=== PATIENT | female | born 1995 | race Caucasian/White ===

== ENCOUNTER 2017-05-21 11:02 | Emergency (ER) | payer BC, MEDICAID ==
[~2017-05-21] VITALS: Ht 162.6 cm; Wt 51.7 kg
[~2017-05-21 11:02] MED LIST: GILD1TAB PO
[2017-05-21 11:12] VITALS: BP 160/98; PULSE 74; RESP 16; TEMP 98.7; O2SAT 100
[2017-05-21] MEDS ORDERED: SODIUM CHLOR 0.9% 1000 ML INJ 1,000 ML IV ONE (11:26)
--- NOTE | 2017-05-21 11:31 | PD ---
HPI Chief Complaint: Flank/Kidney Pain Time Seen by Provider: 11:17 Travel History International Travel<30 days: No Contact w/Intl Traveler<30days: No Traveled to known affect area: No History of Present Illness HPI The patient is a 21-year-old female who presents to the emergency department for abdominal pain and spotting. The patient states her last menstrual cycle was April 05, 2017. Patient is who estimates herself to be 5-6 weeks . The patient states she was at work earlier today when she developed light vaginal spotting that she noticed on her underwear as well as mild right lower quadrant abdominal pain. The patient does note increased frequency and urgency of urination but denies any dysuria. The patient does state she had a kidney infection required hospitalization during her first . The patient denies any vaginal discharge, nausea, vomiting, or upper abdominal pain. The pain is mild to moderate, there are no current alleviating or exacerbating factors. PFSH Past Medical History Medical History: Denies Significant Hx Diminished Hearing: No Genitourinary: Yes (MULTIPLE UTI'S AND EAR INFECTION) Immunizations Current: Yes (UTD) Migraines: Yes Influenza Vaccination: No ?: LMP: 04/05/17 : 2 Para: 1 Past Surgical History Surgical History: No Previous Surgery Social History Alcohol Use: No Tobacco Use: No Substance Use: No Allergies-Medications (Allergen,Severity, Reaction): Coded Allergies: No Known Allergies (Verified , 05/21/17) Reported Meds & Prescriptions Reported Meds & Active Scripts Active No Active Prescriptions or Reported Medications Review of Systems Except as stated in HPI: all other systems reviewed are Neg General / Constitutional: No: Fever Cardiovascular: No: Chest Pain or Discomfort Respiratory: No: Shortness of Breath Gastrointestinal: Positive: Abdominal Pain, No: Nausea, Vomiting Genitourinary: Positive: Urgency, Frequency, Pelvic Pain, Vaginal Bleeding, No : Dysuria, Discharge Skin: No Rash Physical Exam Narrative GENERAL: Awake, alert, nontoxic-appearing 21-year-old female who appears her stated age and is in no acute respiratory distress. SKIN: Focused skin assessment warm/dry. HEAD: Atraumatic. Normocephalic. EYES: No injection or drainage. ENT: No nasal bleeding or discharge. Mucous membranes pink and moist. NECK: Trachea midline. No JVD. GASTROINTESTINAL: Abdomen soft, mild right lower quadrant tenderness, no rebound tennis, guarding, rigidity. Back: No CVA tenderness. Pelvic: The exam was performed in the presence of a female nurse. External examination reveals no rashes or lesions. Cervix is fishmouth shaped with blood at the cervical os. Slightly thick and clear discharge just superior to the cervix. MUSCULOSKELETAL: No obvious deformities. No clubbing. No cyanosis. No edema. NEUROLOGICAL: Awake and alert. No obvious cranial nerve deficits. Motor grossly within normal limits. Normal speech. PSYCHIATRIC: Appropriate mood and affect; insight and judgment normal. Data Data Last Documented VS Vital Signs Date Time Temp Pulse Resp B/P (MAP) Pulse Ox O2 Delivery O2 Flow Rate FiO2 05/21/17 12:54 72 18 128/84 (99) 100 05/21/17 11:12 98.7 Orders Orders Beta Hcg (Quant/Titer) (05/21/17 11:26) Complete Blood Count With Diff (05/21/17 11:26) Basic Metabolic Panel (Bmp) (05/21/17 11:26) Us Pelvis (Ques Pr/Ect)W Trans (05/21/17 ) Urinalysis - C+S If Indicated (05/21/17 11:26) Sodium Chlor 0.9% 1000 Ml Inj (Ns 1000 M (05/21/17 11:26) Ed Urine Pregnancytest Poc (05/21/17 11:26) Urine Culture (05/21/17 11:25) Gc And Chlamydia Pcr (05/21/17 11:47) Wet Prep Profile (05/21/17 11:47) Potassium Chloride (Kcl) (05/21/17 12:00) Labs Laboratory Tests Test 05/21/17 11:25 05/21/17 11:30 05/21/17 12:00 Urine Collection Type CLEAN CATCH Urine Color YELLOW Urine Turbidity SLIGHTY CLOUDY Urine pH 6.0 Urine Specific [place] 1.020 Urine Protein NEG mg/dL Urine Glucose (UA) NEG mg/dL Urine Ketones NEG mg/dL Urine Occult Blood LARGE Urine Nitrite POS Urine Bilirubin NEG Urine Leukocyte Esterase MOD Urine RBC 0-3 /hpf Urine WBC 3-5 /hpf Urine Squamous Epithelial Cells 0-5 /hpf Urine Bacteria MANY /hpf Microscopic Urinalysis Comment CULTURE INDICATED White Blood Count 9.4 TH/MM3 Red Blood Count 5.55 MIL/MM3 Hemoglobin 13.7 GM/DL Hematocrit 42.3 % Mean Corpuscular Volume 76.3 FL Mean Corpuscular Hemoglobin 24.7 PG Mean Corpuscular Hemoglobin Concent 32.4 % Red Cell Distribution Width 13.6 % Platelet Count 258 TH/MM3 Mean Platelet Volume 6.9 FL Neutrophils (%) (Auto) 65.8 % Lymphocytes (%) (Auto) 28.1 % Monocytes (%) (Auto) 4.9 % Eosinophils (%) (Auto) 0.9 % Basophils (%) (Auto) 0.3 % Neutrophils # (Auto) 6.2 TH/MM3 Lymphocytes # (Auto) 2.6 TH/MM3 Monocytes # (Auto) 0.5 TH/MM3 Eosinophils # (Auto) 0.1 TH/MM3 Basophils # (Auto) 0.0 TH/MM3 CBC Comment AUTO DIFF Differential Comment AUTO DIFF CONFIRMED Blood Urea Nitrogen 12 MG/DL Creatinine 0.70 MG/DL Random Glucose 70 MG/DL Calcium Level 8.8 MG/DL Sodium Level 137 MEQ/L Potassium Level 3.2 MEQ/L Chloride Level 102 MEQ/L Carbon Dioxide Level 28.0 MEQ/L Anion Gap 7 MEQ/L Estimat Glomerular Filtration Rate 108 ML/MIN Human Chorionic Gonadotropin, Quant 2583 MIU/ML Clue Cells (Wet Prep) PRESENT Vaginal Trichomonas (Wet Prep) NONE SEEN Vaginal Yeast (Wet Prep) NONE SEEN MDM Medical Decision Making Medical Screen Exam Complete: Yes Emergency Medical Condition: Yes Medical Record Reviewed: Yes Interpretation(s) Laboratory Tests Test 05/21/17 11:25 05/21/17 11:30 05/21/17 12:00 Urine Collection Type CLEAN CATCH Urine Color YELLOW Urine Turbidity SLIGHTY CLOUDY Urine pH 6.0 Urine Specific [place] 1.020 Urine Protein NEG mg/dL Urine Glucose (UA) NEG mg/dL Urine Ketones NEG mg/dL Urine Occult Blood LARGE Urine Nitrite POS Urine Bilirubin NEG Urine Leukocyte Esterase MOD Urine RBC 0-3 /hpf Urine WBC 3-5 /hpf Urine Squamous Epithelial Cells 0-5 /hpf Urine Bacteria MANY /hpf Microscopic Urinalysis Comment CULTURE INDICATED White Blood Count 9.4 TH/MM3 Red Blood Count 5.55 MIL/MM3 Hemoglobin 13.7 GM/DL Hematocrit 42.3 % Mean Corpuscular Volume 76.3 FL Mean Corpuscular Hemoglobin 24.7 PG Mean Corpuscular Hemoglobin Concent 32.4 % Red Cell Distribution Width 13.6 % Platelet Count 258 TH/MM3 Mean Platelet Volume 6.9 FL Neutrophils (%) (Auto) 65.8 % Lymphocytes (%) (Auto) 28.1 % Monocytes (%) (Auto) 4.9 % Eosinophils (%) (Auto) 0.9 % Basophils (%) (Auto) 0.3 % Neutrophils # (Auto) 6.2 TH/MM3 Lymphocytes # (Auto) 2.6 TH/MM3 Monocytes # (Auto) 0.5 TH/MM3 Eosinophils # (Auto) 0.1 TH/MM3 Basophils # (Auto) 0.0 TH/MM3 CBC Comment AUTO DIFF Differential Comment AUTO DIFF CONFIRMED Blood Urea Nitrogen 12 MG/DL Creatinine 0.70 MG/DL Random Glucose 70 MG/DL Calcium Level 8.8 MG/DL Sodium Level 137 MEQ/L Potassium Level 3.2 MEQ/L Chloride Level 102 MEQ/L Carbon Dioxide Level 28.0 MEQ/L Anion Gap 7 MEQ/L Estimat Glomerular Filtration Rate 108 ML/MIN Human Chorionic Gonadotropin, Quant 2583 MIU/ML Clue Cells (Wet Prep) PRESENT Vaginal Trichomonas (Wet Prep) NONE SEEN Vaginal Yeast (Wet Prep) NONE SEEN Ultrasound reveals single intrauterine gestational sac with xndyc-gdtw-yad sac measuring 13 x 10 x 9 mm corresponding to 5 weeks 1 day gestational age. No pole present at this time. The differential considerations include early versus an embryonic . Presume 1.9 cm corpus luteal cyst and a small amount of pelvic free fluid. Differential Diagnosis Differential diagnosis includes UTI, pyelonephritis, appendicitis, normal , ectopic , threatened AB, PID, cervicitis. Narrative Course IV was established, labs are drawn and sent, and the patient was placed on cardiac telemetry monitoring and continuous pulse oximetry monitoring. UA was sent to lab. Quantitative beta hCG was sent to lab. Formal ultrasound was ordered to evaluate for IUP versus ectopic . A pelvic exam was performed in the presence of a female nurse. UA reveals nitrites and bacteria, but no wbc's. Therefore, wet prep/gonorrhea/chlamydia PCR was ordered. Ultrasound reveals single intrauterine gestational sac with small yolk sac corresponding 5 weeks 1 day gestational age but no pole present, differential includes early versus an embryonic . Wet prep is positive for BV, patient will be treated with Flagyl. She is advised to have a repeat beta hCG in 48-72 hours and follow-up with her supervisor webbing. Patient had a prior blood bank performed on August 18, 2014 which was O+, therefore, no indication for RhoGAM. Diagnosis Primary Impression: Threatened Additional Impression: Bacterial vaginosis Patient Instructions: General Instructions Additional Instructions: Please provide the patient copy of her ultrasound results and lab results at discharge. Repeat beta hCG in 48-72 hours with her supervisor webbing. Flagyl as directed. vitamin daily. Drink plenty fluids to stay hydrated. Return if symptoms worsen or progress. Med/Other Pt SpecificInfo: Prescription(s) given Scripts Metronidazole (Flagyl) 500 Mg Tab 500 MG PO BID for Infection for 7 Days, #14 TAB 0 Refills Prov: Hunter Pitt MD 05/21/17 Disposition: 01 DISCHARGE HOME Condition: Stable Hunter Pitt MD May 21, 2017 11:31
[2017-05-21 11:36] LABS: AUTOMATED NEUTROPHIL # 6.2 TH/MM3 (1.8-7.7); BASOPHIL % 0.3 % (0.0-2.0); EOSINOPHIL # 0.1 TH/MM3 (0-0.4); EOSINOPHIL % 0.9 % (0.0-4.0); HEMATOCRIT 42.3 % (35.0-46.0); LYMPH % 28.1 % (9.0-44.0); LYMPHOCYTE # 2.6 TH/MM3 (1.0-4.8); MEAN CELL VOLUME 76.3 FL (80.0-100.0); MEAN CORPUSCULAR HEMOGLOBIN 24.7 PG (27.0-34.0); MEAN CORPUSCULAR HGB CONC 32.4 % (32.0-36.0); MONO % 4.9 % (0.0-8.0); NEUT % 65.8 % (16.0-70.0); PLATELET COUNT 258 TH/MM3 (150-450); RED BLOOD COUNT 5.55 MIL/MM3 (4.00-5.30); RED CELL DISTRIBUTION WIDTH 13.6 % (11.6-17.2); WHITE BLOOD COUNT 9.4 TH/MM3 (4.0-11.0)
[2017-05-21 11:38] LABS: BLOOD, URINE LARGE (NEG); GLUCOSE,URINE NEG (NEG); KETONE, URINE NEG (NEG); NITRITE,URINE POS (NEG)
[2017-05-21 11:39] LABS: METHOD OF COLLECTION CLEAN CATCH; URINE COLOR YELLOW (YELLW/STRAW)
[2017-05-21 11:41] LABS: HEMO FLAGS AUTO DIFF
[2017-05-21 11:44] LABS: BACTERIA, URINE MANY /hpf; COMMENT (UR) CULTURE INDICATED; CULTURE IF INDICATED CULTURE INDICATED; RBC, URINE 0-3 /hpf (0-3); SQUAMOUS EPITHELIAL CELL URINE 0-5 /hpf (0-5)
[2017-05-21 11:45] LABS: POTASSIUM 3.2 MEQ/L (3.5-5.1)
[2017-05-21] MEDS ORDERED: POTASSIUM CHLORIDE 20 MEQ CONTROLLED RELEASE TAB PO ONE (12:00)
[2017-05-21 12:01] LABS: SCAN/DIFF AUTO DIFF CONFIRMED
[2017-05-21 12:54] VITALS: BP 128/84; PULSE 72; RESP 18; O2SAT 100
--- NOTE | 2017-05-21 13:47 | RADRPT ---
EXAM DATE/TIME: 05/21/2017 17:29 [facility] COMPARISON: No previous studies available for comparison. INDICATIONS : Right pelvic pain and spotting for 1 day. LAB(S): Beta-hC,583 MEDICAL HISTORY : . Migraine. SURGICAL HISTORY : None. ENCOUNTER: Initial ACUITY: 1 day PAIN SCORE: 8/10 LOCATION: Bilateral pelvis MEASUREMENTS: RIGHT OVARY: 3.3 x 2.0 x 2.0 cm LEFT OVARY: 5.4 x 3.2 x 3.6 cm UTERUS: 10.2 x 6.3 x 7.0 cm cm ENDOMETRIAL STRIPE: 16 mm FREE FLUID: Yes Trace in posterior cul-de-sac CROWN RUMP LENGTH: Non-visualized. = WKS DAYS FHR: Non-visualized. BPM FINDINGS: UTERUS: There is a single intrauterine gestational sac with small yolk sac measuring 13 x 10 x 9 mm correspon ding to 5 weeks 1 day. However, there is no pole present. Uterus appears unremarkable. RIGHT OVARY: Ovary contains no mass or significant cystic lesion. LEFT OVARY: Ovary contains no mass or significant cystic lesion. Small 1.9 x 1.4 x 1.9 cm probable corpus l uteal cyst. MISCELLANEOUS: Trace free fluid in the pelvis. CONCLUSION: 1. Single intrauterine gestational sac with small yolk sac measuring 13 x 10 x 9 mm corresponding to 5 weeks 1 day gestational age. No pole present at this time. The differential considerations in clude early versus anembryonic . 2. Presumed 1.9 cm corpus luteal cyst and small amount of pelvic free fluid. Brantd Malik MD on May 21, 2017 at 13:39 Board Certified Radiologist. This report was verified electronically.
[2017-05-21] MEDS ORDERED: METR-1 PO (13:59)
[2017-05-21 14:26] VITALS: BP 118/67
[2017-05-21 18:10] LABS: CHLAMYDIA PCR NOT DETECTED (NOT DETECT); NEISSERIA PCR NOT DETECTED (NOT DETECT)
== END 2017-05-21 14:27 | disposition home or self-care (01) ==
LOC: PHED 11:02
DX: O20.0 Threatened abortion (principal); O23.591 Infection of other part of genital tract in pregnancy, first trimester; Z3A.01 Less than 8 weeks gestation of pregnancy
CPT/HCPCS: 76700; 76817; 80048; 81001; 84702; 84703; 85025; 87077; 87086; 87186; 87210; 87491; 87591; 96360; 99285; J7030